=== PATIENT | male | born 2000 | race Two or more races ===

== ENCOUNTER 2022-08-08 23:44 | Emergency (ER) | payer BC ==
[2022-08-09 00:28] VITALS: TEMP 98
[2022-08-09 02:59] VITALS: BP 122/66; PULSE 74; RESP 18
--- NOTE | 2022-08-09 02:59 | ED ---
Allergic Reaction HPI - General Chief complaint: Allergic Reaction Stated complaint: Allergic Reaction Time Seen by Provider: 08/09/22 02:33 Source: patient, RN notes reviewed, old records reviewed Mode of arrival: ambulatory Limitations: no limitations - History of Present Illness Initial Comments: This is a 22-year-old male to the emergency department for evaluation patient has history of ALLERGIES having ALLERGIC reaction. Facial swelling with swelling but no other real significant complaints. No shortness of breath. MD Complaint: allergic reaction, hives, facial swelling -: hour(s) Exposure: unknown Symptoms: rash, facial swelling, lip swelling Severity: moderate Treatment Prior to Arrival: benadryl Previous Allergy History: none - Related Data Previous Rx's Medication Instructions Recorded Famotidine [Pepcid] 40 mg PO BID #28 tablet 08/09/22 hydrOXYzine HCL [Atarax] 25 mg PO TID PRN #15 tab 08/09/22 predniSONE 50 mg PO DAILY #5 tab 08/09/22 Allergies Allergy/AdvReac Type Severity Reaction Status Date / Time No Known Allergies Allergy Verified 08/09/22 00:27 Review of Systems ROS Statement: Those systems with pertinent positive or pertinent negative responses have been documented in the HPI. ROS Other: All systems not noted in ROS Statement are negative. Past Medical History Additional Past Medical History / Comment(s): seasonal allergies, hiatel hernia History of Any Multi-Drug Resistant Organisms: None Reported Past Surgical History: Tonsillectomy Past Psychological History: No Psychological Hx Reported Smoking Status: Never smoker Past Alcohol Use History: Occasional Past Drug Use History: Marijuana General Exam Limitations: no limitations General appearance: alert, in no apparent distress Head exam: Present: atraumatic, normocephalic, normal inspection Eye exam: Present: normal appearance, PERRL, EOMI. Absent: scleral icterus, conjunctival injection, periorbital swelling ENT exam: Present: normal exam, mucous membranes moist Neck exam: Present: normal inspection. Absent: tenderness, meningismus, lymphadenopathy Respiratory exam: Present: normal lung sounds bilaterally. Absent: respiratory distress, wheezes, rales, rhonchi, stridor Cardiovascular Exam: Present: regular rate, normal rhythm, normal heart sounds. Absent: systolic murmur, diastolic murmur, rubs, gallop, clicks GI/Abdominal exam: Present: soft, normal bowel sounds. Absent: distended, tenderness, guarding, rebound, rigid Extremities exam: Present: normal inspection, full ROM, normal capillary refill. Absent: tenderness, pedal edema, joint swelling, calf tenderness Back exam: Present: normal inspection Neurological exam: Present: alert, oriented X3, CN II-XII intact Psychiatric exam: Present: normal affect, normal mood Skin exam: Present: warm, dry, intact, normal color. Absent: rash Course Vital Signs 08/09/22 08/09/22 08/09/22 00:24 02:57 03:02 Temperature 98.0 F Pulse Rate 84 74 Respiratory 20 18 18 Rate Blood Pressure 125/75 122/66 O2 Sat by Pulse 100 100 Oximetry 08/09/22 03:52 Temperature 98.0 F Pulse Rate 74 Respiratory 18 Rate Blood Pressure 122/66 O2 Sat by Pulse 100 Oximetry - Reevaluation(s) Reevaluation #1: 08/09/22 Medical record is reviewed Patient symptoms are improved here in the ER Patient informed results and questions answered Medical Decision Making - Medical Decision Making 22-year-old male the ER for evaluation of ALLERGIC reaction dermatitis and urticarial reaction. Patient's in no distress no shortness of breath symptoms are improving can be discharged Disposition Clinical Impression: Allergic reaction Disposition: HOME SELF-CARE Condition: Good Instructions (If sedation given, give patient instructions): Anaphylaxis (ED) Prescriptions: hydrOXYzine HCL [Atarax] 25 mg PO TID PRN #15 tab PRN Reason: Itching Famotidine [Pepcid] 40 mg PO BID #28 tablet predniSONE 50 mg PO DAILY #5 tab Is patient prescribed a controlled substance at d/c from ED?: No Referrals: None,Stated [Primary Care Provider] - 1-2 days Time of Disposition: 03:30
[2022-08-09] MEDS ORDERED: FAMOTIDINE 20 MG TAB PO STA (03:23)
[2022-08-09] MEDS ORDERED: dexAMETHasone 2 MG TAB PO STA (03:23)
[2022-08-09] MEDS ORDERED: hydrOXYzine HCL 25 MG TAB PO ONE (03:30)
== END 2022-08-09 03:53 | disposition home or self-care (01) ==
LOC: EC 23:44
DX: T78.40XA Allergy, unspecified, initial encounter (principal); L50.0 Allergic urticaria; L30.9 Dermatitis, unspecified; F12.90 Cannabis use, unspecified, uncomplicated
CPT/HCPCS: 99283; J8540